=== PATIENT | male | born 1980 | race Caucasian/White ===

== ENCOUNTER 2018-03-29 16:22 | Inpatient (IN) ==
[2018-03-29] MEDS ORDERED: Haloperidol Inj 5 MG/ML Ampul IM ONE (16:24)
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
[2018-03-29] MEDS ORDERED: Sod Chloride 0.9% Inj 1,000 ML IV.SIG ONE (16:48)
[2018-03-29 17:21] LABS: Baso # (Auto) 0.2 th/mm3 (0.0-0.2); Baso % (Auto) 1.5 % (0.0-2.0); Eos # (Auto) 0.1 th/mm3 (0.0-0.4); Eos % (Auto) 0.7 % (0.0-4.0); Hemoglobin 13.3 gm/dL (13.0-17.0); Lymph # (Auto) 2.4 th/mm3 (1.0-4.8); Lymph % (Auto) 14.8 % (9.0-44.0); Mean Corpuscular HGB Conc 34.2 % (32.0-36.0); Mean Corpuscular Hemoglobin 27.4 pg (27.0-34.0); Mean Corpuscular Volume 80.3 fL (80.0-100.0); Mean Platelet Volume 8.9 fL (7.0-11.0); Mono # (Auto) 1.4 th/mm3 (0.0-0.9); Mono % (Auto) 8.8 % (0.0-8.0); Neut # (Auto) 12.2 th/mm3 (1.8-7.7); Neut % (Auto) 74.2 % (16.0-70.0); Platelet Count 298 th/mm3 (150-450); Red Blood Count 4.85 mil/mm3 (4.50-5.90); Red Cell Distribution Width 15.9 % (11.6-17.2); White Blood Count 16.4 th/mm3 (4.0-11.0)
[2018-03-29 18:09] LABS: Calcium 8.8 mg/dL (8.5-10.1); Carbon Dioxide 22.3 meq/L (21.0-32.0); Magnesium 2.5 mg/dL (1.5-2.5)
[2018-03-29 18:31] LABS: CKMB Percent 1.5 % (0.0-4.0); Creatine Kinase MB 26.3 ng/mL (0.5-3.6)
[2018-03-29] MEDS ORDERED: Sod Chloride 0.9% Inj 1,000 ML IV.SIG SCH (19:00)
[2018-03-29 21:34] LABS: Calcium 7.7 mg/dL (8.5-10.1); Carbon Dioxide 21.9 meq/L (21.0-32.0); Potassium 5.1 meq/L (3.5-5.1)
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
[2018-03-29 22:07] LABS: CKMB Percent 1.3 % (0.0-4.0); Creatine Kinase MB 36.5 ng/mL (0.5-3.6)
[2018-03-30] MEDS ORDERED: Acetaminophen 325 MG Tablet PO PRN (01:14)
[2018-03-30] MEDS ORDERED: Bisacodyl 10 MG Supp RECTAL PRN (01:14)
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
[2018-03-30 12:31] LABS: Amphetamine Screen,Urine Pos (Neg); Barbiturate Screen,Urine Neg (Neg); Cannabinoid Screen,Urine Pos (Neg); Cocaine Screen,Urine Neg (Neg)
[2018-03-30 12:35] LABS: Opiate Screen,Urine Pos (Neg)
[2018-03-30 16:39] VITALS: O2SAT 98
[2018-03-31 04:29] VITALS: BP 137/75; RESP 20; TEMP 97.9
[2018-03-31 06:36] VITALS: PULSE 79
--- NOTE | 2018-03-31 06:59 | P.PNADD ---
Addendum to Inpatient Note Reason for Addendum: Additional Documentation Additional information: Notified that patient left AMA.
[2018-03-31 08:00] LABS: Baso # (Auto) 0.1 th/mm3 (0.0-0.2); Baso % (Auto) 1.1 % (0.0-2.0); Eos # (Auto) 0.1 th/mm3 (0.0-0.4); Eos % (Auto) 1.7 % (0.0-4.0); Hematocrit 38.1 % (39.0-51.0); Hemoglobin 12.7 gm/dL (13.0-17.0); Lymph # (Auto) 1.4 th/mm3 (1.0-4.8); Lymph % (Auto) 21.9 % (9.0-44.0); Mean Corpuscular HGB Conc 33.4 % (32.0-36.0); Mean Corpuscular Hemoglobin 26.7 pg (27.0-34.0); Mean Platelet Volume 9.1 fL (7.0-11.0); Mono # (Auto) 0.6 th/mm3 (0.0-0.9); Neut # (Auto) 4.1 th/mm3 (1.8-7.7); Neut % (Auto) 65.3 % (16.0-70.0); Platelet Count 249 th/mm3 (150-450); Red Blood Count 4.77 mil/mm3 (4.50-5.90); White Blood Count 6.3 th/mm3 (4.0-11.0)
[2018-03-31 08:34] LABS: Alanine Aminotransferase 106 U/L (12-78); Albumin 2.8 g/dL (3.4-5.0); Anion Gap 8 meq/L (5-15); Aspartate Aminotransferase 116 U/L (15-37); Blood Urea Nitrogen 9 mg/dL (7-18); Calcium 7.8 mg/dL (8.5-10.1); Chloride 109 meq/L (98-107); Glomerular Filtration Rate Greater Than 89 mL/min (>89); Glucose,Random 114 mg/dL (74-106); Potassium 3.8 meq/L (3.5-5.1); Sodium 143 meq/L (136-145)
[2018-03-31 08:50] LABS: Alkaline Phosphatase 60 U/L (45-117); Creatine Kinase 2806 U/L (39-308); Total Protein 6.4 g/dL (6.4-8.2)
[2018-03-31 09:22] LABS: CKMB Percent 0.3 % (0.0-4.0); Creatine Kinase MB 8.4 ng/mL (0.5-3.6)
== END 2018-03-31 06:50 | disposition left against medical advice (07) | DRG 558 ==
LOC: NEDA 16:22 → NEPE 16:22 → N07 03-30 02:27
PROVIDERS: ADMIT Internal Medicine; ATTEND Internal Medicine
CPT/HCPCS: 70450; 72125; 80048; 80053; 80307; 82550; 82552; 83735; 85025; 90760; 90761; 90772; 90782; 96360; 96361; 96372; 99285; G0378; J1630; J2060; J2250; J3410; J7030; J7120